=== PATIENT | female | born 1970 | race Caucasian/White ===

== ENCOUNTER 2018-08-08 12:17 | Emergency (ER) | payer MEDICAID ==
[~2018-08-08] VITALS: Ht 157.5 cm; Wt 108.9 kg
[2018-08-08 12:31] VITALS: BP 119/70
--- NOTE | 2018-08-08 12:37 | NUR ---
Patient ambulated to bed 3. RN evaluating patient at bedside.
--- NOTE | 2018-08-08 12:40 | NUR ---
PT CAME INTO DUE TO SORE THROAT AND CONGESTION SINCE YESTERDAY. PT. STATES " MY SON WAS SENT HOME FROM SCHOOL YESTERDAY AND I THINK HE GOT ME SICK TOO, I HAVE A SORE THROAT AND COUGH AND A RUNNY NOSE". SUBJECTIVE FEVER PER PATIENT 7/10 PAIN IN THROAT AND DESCRIBED SORE. LS: CLEAR BILAT. ER MD NOTIFIED. WILL CONTINUE TO MONITOR. SAFETY PRECAUTIONS IMPLEMENTED .
--- NOTE | 2018-08-08 13:40 | NUR ---
PT. RESTING COFMORTABLY IN BED, RR EVEN AND UNLABORED. WILL CONTINUE TO MONITOR.
--- NOTE | 2018-08-08 14:14 | NUR ---
STREP A SPECIMEN COLLECTED AND GIVEN TO LAB
--- NOTE | 2018-08-08 14:39 | NUR ---
DANNI CALLED FROM LAB TO REPORT STREP A POSITIVE . ER MD CHAVARRIA MADE AWARE
[2018-08-08 14:55] VITALS: BP 107/75
--- NOTE | 2018-08-08 14:55 | NUR ---
Patient discharged with v/s stable. Written and verbal after care instructions given and explained. Patient alert, oriented and verbalized understanding of instructions. Ambulatory with steady gait. All questions addressed prior to discharge. ID band removed. Patient advised to follow up with PMD. Rx of NAPROSYN 375MG AND PENICILLIN VK 500MG given. Patient educated on indication of medication including possible reaction and side effects. Opportunity to ask questions provided and answered.
== END 2018-08-08 14:55 | disposition home or self-care (01) ==
LOC: MED 12:17
DX: J02.9 Acute pharyngitis, unspecified (principal); R42 Dizziness and giddiness; R53.1 Weakness
CPT/HCPCS: 87081; 99283

== ENCOUNTER 2018-09-05 14:25 | Emergency (ER) | payer MEDICAID, OTHER ==
[~2018-09-05] VITALS: Ht 157.5 cm; Wt 113.4 kg
[2018-09-05 14:27] VITALS: BP 105/66
--- NOTE | 2018-09-05 14:37 | NUR ---
PATIENT WHEELCHAIR ASSISTED TO BED 4.
--- NOTE | 2018-09-05 15:00 | NUR ---
48f bib family with c/o productive cough, fevers, and fatigue x 2 days. Pt also reports of mild sob. Pt is aox4 to person, place, situation, and time. Pt denies any cp. RR are even and unlabored. Clear speech with full sentences. Abd is soft and non tender. Pt denies any n/v/d. NAD. Awaiting er md kahn. Will continue to monitor.
[2018-09-05] MEDS ORDERED: ACETAMINOPHEN EXTRA STRENGTH 500 MG TAB PO ONE (15:20)
--- NOTE | 2018-09-05 15:31 | NUR ---
influenza swab collected and sent to lab
--- NOTE | 2018-09-05 15:39 | NUR ---
patient returned from xray accompanied by radiographic technologist. returned to rm 4 without incident.
[2018-09-05 17:15] VITALS: BP 112/70
--- NOTE | 2018-09-05 17:15 | NUR ---
Patient discharged with v/s stable. Written and verbal after care instructions given and explained. Patient alert, oriented and verbalized understanding of instructions. Ambulatory with steady gait. All questions addressed prior to discharge. ID band removed. Patient advised to follow up with PMD. Rx of Tamiflu 75mg, Promethazine 6.25mg-15mg, Ibuprofen 600mg given. Patient educated on indication of medication including possible reaction and side effects. Opportunity to ask questions provided and answered.
== END 2018-09-05 15:39 | disposition home or self-care (01) ==
LOC: MED 14:25
DX: J10.1 Influenza due to other identified influenza virus with other respiratory manifestations (principal)
CPT/HCPCS: 36415; 71046; 87804; 99284

== ENCOUNTER 2019-05-28 16:23 | Emergency (ER) | payer OTHER ==
[~2019-05-28] VITALS: Ht 157.5 cm; Wt 131.1 kg
[2019-05-28 16:31] VITALS: BP 126/79
[2019-05-28] MEDS ORDERED: KETOROLAC 30 MG/ML VIAL IM ONE (16:40)
[2019-05-28 19:13] VITALS: BP 124/81
== END 2019-05-28 19:13 | disposition home or self-care (01) ==
LOC: MED 16:23
DX: S00.83XA Contusion of other part of head, initial encounter (principal); S20.219A Contusion of unspecified front wall of thorax, initial encounter; V43.63XA Car passenger injured in collision with pick-up truck in traffic accident, initial encounter; Y93.89 Activity, other specified; Y92.89 Other specified places as the place of occurrence of the external cause; Y99.8 Other external cause status
CPT/HCPCS: 70150; 71046; 96372; 99283; J1885